=== PATIENT | male | born 1990 | race American Indian/Alaskan Native ===

== ENCOUNTER 2020-01-20 07:18 | Inpatient (IN) | payer OTHER ==
--- NOTE | 2020-01-20 08:27 | XRay Report ---
CHEST 2 VIEWS INDICATION / CLINICAL INFORMATION: Chest Pain. COMPARISON: None available. FINDINGS: SUPPORT DEVICES: None. HEART / MEDIASTINUM: No significant abnormality. LUNGS / PLEURA: No significant pulmonary or pleural abnormality. No pneumothorax. ADDITIONAL FINDINGS: No significant additional findings. IMPRESSION: 1. No acute findings. Signer Name: Ted Méndez MD Signed: 01/20/2020 8:22 AM Workstation Name: [id number]
--- NOTE | 2020-01-20 11:13 | Emergency Department Report ---
ED Chest Pain HPI - General Chief Complaint: Chest Pain Stated Complaint: CHEST PAIN Time Seen by Provider: 01/20/20 10:35 Source: patient Mode of arrival: Ambulatory Limitations: No Limitations - History of Present Illness Initial Comments: This is a 29-year-old -Latvian male presents to the emergency department with a complaint of chest pain, arm pain, shortness of breath that has been going on for the past few days but worsened this morning. 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 On top of that, the patient just recently started a new workout regiment but he describes as "training." This morning the symptoms were worse than usual so he came in for evaluation. He denies any fever, nausea, vomiting, lower extremity swelling, abdominal pain, back pain. He has not taken anything for symptoms prior to presentation. He denies any past medical history. Denies tobacco and illicit drug use. No recent travel or sick contacts at home. - Related Data Home Medications Medication Instructions Recorded Confirmed Last Taken No Known Home Medications [No 01/20/20 01/20/20 Unknown Reported Home Medications] Allergies Allergy/AdvReac Type Severity Reaction Status Date / Time No Known Allergies Allergy Unverified 01/20/20 07:22 Heart Score - HEART Score History: Slightly suspicious EKG: Normal Age: < 45 Risk factors: No known risk factors Troponin: < normal limit HEART Score: 0 - Critical Actions Critical Actions: 0-3 pts:0.9-1.7%risk of adverse cardiac event.Candidate for [facility] ED Review of Systems ROS: Stated complaint: CHEST PAIN Other details as noted in HPI Comment: All other systems reviewed and negative Constitutional: denies: chills, fever Eyes: denies: eye pain, vision change ENT: denies: ear pain, throat pain Respiratory: shortness of breath. denies: cough Cardiovascular: chest pain. denies: palpitations Gastrointestinal: denies: abdominal pain, vomiting Genitourinary: denies: dysuria, discharge Musculoskeletal: myalgia. denies: back pain Skin: denies: rash, lesions Neurological: denies: headache, weakness ED Past Medical Hx - Past Medical History Previous Medical History?: No - Surgical History Past Surgical History?: No - Social History Smoking Status: Never Smoker Substance Use Type: Alcohol - Medications Home Medications: Home Medications Medication Instructions Recorded Confirmed Last Taken Type No Known Home Medications [No 01/20/20 01/20/20 Unknown History Reported Home Medications] ED Physical Exam - General Limitations: No Limitations - Other Other exam information: GENERAL: The patient is well-developed well-nourished. HENT: Normocephalic. Atraumatic. Patient has moist mucous membranes. EYES: Extraocular motions are intact. NECK: Supple. Trachea is midline. CHEST/LUNGS: Clear to auscultation. There is no respiratory distress noted. There is reproducible tenderness to palpation along the anterior chest wall but no crepitus or deformity. HEART/CARDIOVASCULAR: Regular. There is no tachycardia. There is no murmur. ABDOMEN: Abdomen is soft, nontender. Patient has normal bowel sounds. SKIN: Skin is warm and dry. NEURO: The patient is awake, alert, and oriented. The patient is cooperative. The patient has no focal neurologic deficits. Normal speech. MUSCULOSKELETAL: There is no tenderness or deformity. There is no evidence of acute injury. ED Course Vital Signs 01/20/20 01/20/20 01/20/20 07:24 12:12 12:25 Temperature 98.6 F Pulse Rate 90 81 Pulse Rate [ 77 Anterior Bilateral] Pulse Rate [ 77 Posterior] Respiratory 20 Rate Respiratory 18 Rate [Anterior Bilateral] Respiratory 24 Rate [Posterior ] Blood Pressure 127/91 Blood Pressure 133/80 [Right] O2 Sat by Pulse 98 Oximetry AIDEE score - Aidee Score Age > 65: (0) No Aspirin use within the Past 7 Days: (0) No 3 or more CAD Risk Factors: (0) No 2 or more Angina events in past 24 hrs: (1) Yes Known CAD with more than 50% Stenosis: (0) No Elevated Cardiac Markers: (0) No ST Deviation Greater than 0.5mm: (0) No AIDEE Score: 1 ED Medical Decision Making - Lab Data Result diagrams: 01/20/20 11:14 01/20/20 11:14 - EKG Data -: EKG Interpreted by Me EKG shows normal: sinus rhythm, axis, intervals, QRS complexes, ST-T waves Rate: normal - EKG Data When compared to previous EKG there are: previous EKG unavailable Interpretation: normal EKG - Radiology Data Radiology results: image reviewed interpreted by me: Chest x-ray does not show any acute process. There are no pleural effusions, obvious pneumonia and there is no pneumothorax. - Medical Decision Making This patient presents to the emergency department with a complaint of some chest pain, bilateral arm/shoulder pain, and some shortness of breath. EKG does not have any morphology consistent with ST elevation SD. Chest x-ray does not show any pneumonia, pneumothorax, focal consolidation, pleural effusions, or any other acute process. Given the patient's complaint of exertion at work and starting a new "training" regiment, I had concern for rhabdomyolysis. There is no renal insufficiency but the patient has a CK level of greater than 66,000. An IV has been placed and he has been started on IV fluid resuscitation. He will be admitted to the hospital for further evaluation and treatment and was accepted for admission by the hospitalist service. Critical Care Time: No Critical care attestation.: If time is entered above; I have spent that time in minutes in the direct care of this critically ill patient, excluding procedure time. ED Disposition Clinical Impression: Rhabdomyolysis Qualifiers: Rhabdomyolysis type: traumatic Encounter type: initial encounter Qualified Code(s): T79.6XXA - Traumatic ischemia of muscle, initial encounter Chest pain Qualifiers: Chest pain type: unspecified Qualified Code(s): R07.9 - Chest pain, unspecified Dyspnea Qualifiers: Dyspnea type: shortness of breath Qualified Code(s): R06.02 - Shortness of breath; R06.00 - Dyspnea, unspecified; R06.01 - Orthopnea Disposition: OP ADMIT IP TO THIS HOSP Is pt being admited?: Yes Condition: Fair Instructions: Chest Pain (ED) Referrals: PRIMARY CARE, [Primary Care Provider] - 3-5 Days Time of Disposition: 12:54
[2020-01-20 11:28] LABS: Basophils # (Auto) 0.2 K/mm3 (0.0-0.1); Basophils % (Auto) 2.8 % (0.0-1.8); Eosinophils # (Auto) 0.1 K/mm3 (0.0-0.4); Eosinophils % (Auto) 1.1 % (0.0-4.3); Hematocrit 48.4 % (35.5-45.6); Hemoglobin 16.3 gm/dl (11.8-15.2); Lymphocytes # (Auto) 1.4 K/mm3 (1.2-5.4); Lymphocytes % (Auto) 23.5 % (13.4-35.0); Mean Corpuscular HGB Conc 34 % (32-34); Mean Corpuscular Volume 87 fl (84-94); Monocytes # (Auto) 0.4 K/mm3 (0.0-0.8); Platelet Count 233 K/mm3 (140-440); Red Cell Distribution Width 15.1 % (13.2-15.2)
[2020-01-20] MEDS ORDERED: IPRATROPIUM/ALBUTEROL SULFATE 3 ML AMPUL.NEB IH ONE (11:36)
[2020-01-20 11:41] LABS: BUN/Creatinine Ratio 14; Blood Urea Nitrogen 11 mg/dL (9-20); Calcium 9.9 mg/dL (8.4-10.2); Hemolysis Index 5
[2020-01-20] MEDS ORDERED: SODIUM CHLORIDE 0.9% 1000 ML 2,000 ML ONE (12:40)
[2020-01-20] MEDS ORDERED: SODIUM CHLORIDE 0.9% 1000 ML 1,000 ML IV ONE ×3 (12:50→14:44)
--- NOTE | 2020-01-20 14:45 | History and Physical Report ---
History of Present Illness Date of examination: 01/20/20 Date of admission: 01/20/20 12:55 Chief complaint: Generalized body pains, myalgia, chest pain History of present illness: 29-year-old -Japanese male presents with no significant past medical history, not on any medication presents to the emergency room with generalized body pains including chest pain arm pain and shortness of breath intermittent for the last 3 to 4 days worse since morning. 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 Patient also gives history of recent vigorous exercise program to condition himself. Patient denies any fever, no nausea vomiting, denies headache or dizziness, denies any sick contacts Denies orthopnea, paroxysmal nocturnal dyspnea or palpitations. Initial work-up in the emergency room is consistent with severe rhabdomyolysis with CK levels more than 60,000, preserved renal function Chest x-ray no acute abnormality noted Past History Past Medical History: No medical history. denies: diabetes, hypertension Past Surgical History: denies: No surgical history Social history: full code. denies: smoking, alcohol abuse, prescription drug abuse Family history: no significant family history Medications and Allergies Allergies Allergy/AdvReac Type Severity Reaction Status Date / Time No Known Allergies Allergy Unverified 01/20/20 07:22 Home Medications Medication Instructions Recorded Confirmed Last Taken Type No Known Home Medications [No 01/20/20 01/20/20 Unknown History Reported Home Medications] Review of Systems Constitutional: weakness, other (Generalized body pains), no weight loss, no weight gain, no fever, no chills Ears, nose, mouth and throat: no nasal congestion, no nasal discharge Cardiovascular: chest pain, no orthopnea, no palpitations, no shortness of breath Respiratory: no cough with sputum, no hemoptysis Gastrointestinal: no abdominal pain, no nausea, no vomiting Genitourinary Male: no dysuria, no hematuria Musculoskeletal: myalgias, other (Generalized body pains) Integumentary: no rash, no lesions Neurological: weakness, no seizures, no syncope Psychiatric: no anxiety, no depression Endocrine: no cold intolerance, no heat intolerance Hematologic/Lymphatic: no easy bruising, no easy bleeding Allergic/Immunologic: no urticaria, no allergic rhinitis Exam - Constitutional Vitals: Temp Pulse Resp BP Pulse Ox 98.6 F 77 18 133/80 98 01/20/20 07:24 01/20/20 12:25 01/20/20 12:25 01/20/20 12:12 01/20/20 12:12 General appearance: Present: mild distress, well-nourished - EENT Eyes: Present: PERRL, EOM intact - Neck Neck: Present: supple, normal ROM - Respiratory Respiratory effort: normal Respiratory: bilateral: diminished, negative: rales, rhonchi, wheezing - Cardiovascular Rhythm: regular Heart Sounds: Present: S1 & S2 - Extremities Extremities: no ischemia, No edema - Abdominal General gastrointestinal: Present: soft, non-tender, non-distended, normal bowel sounds - Integumentary Integumentary: Present: clear, warm - Musculoskeletal Musculoskeletal: strength equal bilaterally - Psychiatric Psychiatric: appropriate mood/affect, cooperative - Neurologic Neurologic: CNII-XII intact, moves all extremities HEART Score - HEART Score EKG: Normal Age: < 45 Risk factors: No known risk factors Troponin: Troponin T < 0.010 ng/mL (0.00-0.029) 01/20/20 11:14 Troponin: < normal limit - Critical Actions Critical Actions: 0-3 pts:0.9-1.7%risk of adverse cardiac event.Candidate for discharge Results - Labs CBC & Chem 7: 01/20/20 11:14 01/20/20 11:14 Labs: Abnormal lab results 01/20/20 01/20/20 Range/Units 11:14 11:14 RBC 5.60 H (3.65-5.03) M/mm3 Hgb 16.3 H (11.8-15.2) gm/dl Hct 48.4 H (35.5-45.6) % Baso % (Auto) 2.8 H (0.0-1.8) % Baso # 0.2 H (0.0-0.1) K/mm3 Glucose 104 H (75-100) mg/dL Total Creatine Kinase 82057 H (55-170) units/L Assessment and Plan --Rhabdomyolysis; with preserved renal function Probably secondary to heavy lifting weights at work and Excessive exercises, with myalgia CK levels more than 60,000 Rigorous IV hydration, input output monitoring Plenty of oral fluids, closely monitor renal function Consult nephrology if no improvement --Atypical chest pain, generalized body pains; Unlikely cardiac due to age, and history of rigorous physical activity Associated with rhabdomyolysis Closely monitor --DVT prophylaxis; Lovenox Monitor closely and adjust management as needed Plan of care reviewed with the patient and the nurse
[2020-01-20] MEDS ORDERED: oxyCODONE /ACETAMINOPHEN 5-325MG TAB ONE (17:19)
[2020-01-20] MEDS: oxyCODONE /ACETAMINOPHEN 5-325MG TAB PO PRN (17:25)
[2020-01-20] MEDS ORDERED: MORPHINE 2 MG/1 ML INJ IV PRN (19:18)
[2020-01-20 19:54] LABS: Amphetamine Screen,Urine Negative; Benzodiazepines Screen,Urine Negative; Cannabinoid Screen,Urine Negative; Cocaine Screen,Urine Negative; Methadone Screen,Urine Negative; Opiate Screen,Urine Negative
[2020-01-21] MEDS: SODIUM CHLORIDE 0.9% 1000 ML 1,000 ML IV SCH ×4 (01:12→19:28)
[2020-01-21] MEDS: oxyCODONE /ACETAMINOPHEN 5-325MG TAB PO PRN ×3 (02:07→17:17)
[2020-01-21 05:59] LABS: BUN/Creatinine Ratio 15; Blood Urea Nitrogen 12 mg/dL (9-20); Calcium 8.5 mg/dL (8.4-10.2); Hemolysis Index 18
[2020-01-21 06:00] LABS: Creatine Kinase MB 21.4 ng/mL (0.0-4.0)
[2020-01-21] MEDS ORDERED: PANTOPRAZOLE 40 MG INJ IV SCH (10:00)
[2020-01-21] MEDS ORDERED: FUROSEMIDE 40 MG/4 ML INJ IV SCH (10:00)
--- NOTE | 2020-01-21 10:44 | Progress Note ---
Assessment and Plan Assessment and plan: --Rhabdomyolysis; There is IV hydration, IV Lasix Input output monitoring Closely monitor CK levels Preserved renal function Nephrology if needed --Atypical chest pain; Associated with generalized body pains; due to rhabdomyolysis Unlikely cardiac due to age, and history of rigorous physical activity Continue vigorous IV hydration supportive care --DVT prophylaxis; Lovenox Monitor closely and adjust management as needed Plan of care reviewed with the patient and the nurse History Interval history: Seen and evaluated the patient in his room this morning medical records reviewed Patient's CK levels remain more than 60,000 Patient complains of generalized body pains No fever Vital signs reviewed Hospitalist Physical - Constitutional Vitals: Temp Pulse Resp BP Pulse Ox 97.9 F 63 18 124/68 100 01/21/20 05:08 01/21/20 05:08 01/21/20 05:08 01/21/20 05:08 01/21/20 05:08 General appearance: Present: mild distress, well-nourished - EENT Eyes: Present: PERRL, EOM intact - Neck Neck: Present: supple, normal ROM - Respiratory Respiratory effort: normal Respiratory: bilateral: diminished, negative: rales, rhonchi, wheezing - Cardiovascular Rhythm: regular Heart Sounds: Present: S1 & S2 - Extremities Extremities: no ischemia, No edema - Abdominal General gastrointestinal: soft, non-tender, non-distended, normal bowel sounds - Integumentary Integumentary: Present: clear, warm - Psychiatric Psychiatric: appropriate mood/affect, cooperative - Neurologic Neurologic: CNII-XII intact, moves all extremities HEART Score - HEART Score EKG: Normal Age: < 45 Risk factors: No known risk factors Troponin: Troponin T < 0.010 ng/mL (0.00-0.029) 01/20/20 11:14 Troponin: < normal limit - Critical Actions Critical Actions: 0-3 pts:0.9-1.7%risk of adverse cardiac event.Candidate for discharge Results - Labs CBC & Chem 7: 01/20/20 11:14 01/21/20 05:01 Labs: Laboratory Last Values WBC 6.1 K/mm3 (4.5-11.0) 01/20/20 11:14 RBC 5.60 M/mm3 (3.65-5.03) H 01/20/20 11:14 Hgb 16.3 gm/dl (11.8-15.2) H 01/20/20 11:14 Hct 48.4 % (35.5-45.6) H 01/20/20 11:14 MCV 87 fl (84-94) 01/20/20 11:14 MCH 29 pg (28-32) 01/20/20 11:14 MCHC 34 % (32-34) 01/20/20 11:14 RDW 15.1 % (13.2-15.2) 01/20/20 11:14 Plt Count 233 K/mm3 (140-440) 01/20/20 11:14 Lymph % (Auto) 23.5 % (13.4-35.0) 01/20/20 11:14 [place] % (Auto) 6.0 % (0.0-7.3) 01/20/20 11:14 Eos % (Auto) 1.1 % (0.0-4.3) 01/20/20 11:14 Baso % (Auto) 2.8 % (0.0-1.8) H 01/20/20 11:14 Lymph # 1.4 K/mm3 (1.2-5.4) 01/20/20 11:14 [place] # 0.4 K/mm3 (0.0-0.8) 01/20/20 11:14 Eos # 0.1 K/mm3 (0.0-0.4) 01/20/20 11:14 Baso # 0.2 K/mm3 (0.0-0.1) H 01/20/20 11:14 Seg Neutrophils % 66.6 % (40.0-70.0) 01/20/20 11:14 Seg Neutrophils # 4.0 K/mm3 (1.8-7.7) 01/20/20 11:14 Sodium 141 mmol/L (137-145) 01/21/20 05:01 Potassium 4.2 mmol/L (3.6-5.0) 01/21/20 05:01 Chloride 104.1 mmol/L (98-107) 01/21/20 05:01 Carbon Dioxide 26 mmol/L (22-30) 01/21/20 05:01 Anion Gap 15 mmol/L 01/21/20 05:01 BUN 12 mg/dL (9-20) 01/21/20 05:01 Creatinine 0.8 mg/dL (0.8-1.5) 01/21/20 05:01 Estimated GFR > 60 ml/min 01/21/20 05:01 BUN/Creatinine Ratio 15 % 01/21/20 05:01 Glucose 100 mg/dL (75-100) 01/21/20 05:01 Calcium 8.5 mg/dL (8.4-10.2) 01/21/20 05:01 Total Creatine Kinase 61750 units/L (55-170) H 01/21/20 08:24 CK-MB (CK-2) 21.4 ng/mL (0.0-4.0) H 01/21/20 05:01 CK-MB (CK-2) Rel Index 52.1 (0-4) H 01/21/20 05:01 Troponin T < 0.010 ng/mL (0.00-0.029) 01/20/20 11:14 Urine Opiates Screen Negative 01/20/20 19:37 Urine Methadone Screen Negative 01/20/20 19:37 Ur Barbiturates Screen Negative 01/20/20 19:37 Ur Phencyclidine Scrn Negative 01/20/20 19:37 Ur Amphetamines Screen Negative 01/20/20 19:37 U Benzodiazepines Scrn Negative 01/20/20 19:37 Urine Cocaine Screen Negative 01/20/20 19:37 U Marijuana (THC) Screen Negative 01/20/20 19:37 Drugs of Abuse Note Disclamer 01/20/20 19:37 Cooley/IV: IV Catheter Type [Left INT / Saline Lock Antecubital] Active Medications - Current Medications Current Medications: Generic Name Dose Route Start Last Admin Trade Name Freq PRN Reason Stop Dose Admin Furosemide 40 mg 01/21/20 10:00 01/21/20 09:31 Lasix IV 40 mg QDAY JEFFERY Administration Sodium Chloride 1,000 mls @ 150 mls/hr 01/20/20 15:00 01/21/20 06:43 Nacl 0.9% 1000 Ml IV 150 mls/hr DIRECT JEFFERY Administration Morphine Sulfate 2 mg 01/20/20 19:18 01/20/20 19:37 Morphine IV 2 mg Q8H PRN Administration Pain, Moderate (4-6) Oxycodone/Acetaminophen 1 tab 01/20/20 17:15 01/21/20 09:33 Percocet 5/325 PO 1 tab Q6H PRN Administration Pain, Moderate (4-6) Pantoprazole Sodium 40 mg 01/21/20 10:00 01/21/20 09:31 Protonix IV 40 mg QDAY JEFFERY Administration
[2020-01-21] MEDS: FUROSEMIDE 40 MG/4 ML INJ IV SCH ×2 (21:33→22:15)
[2020-01-22] MEDS: SODIUM CHLORIDE 0.9% 1000 ML 1,000 ML IV SCH ×6 (00:05→21:57)
[2020-01-22] MEDS: oxyCODONE /ACETAMINOPHEN 5-325MG TAB PO PRN ×2 (04:50→14:30)
[2020-01-22] MEDS: FUROSEMIDE 40 MG/4 ML INJ IV SCH ×2 (06:03→19:01)
[2020-01-22] MEDS: PANTOPRAZOLE 40 MG TAB PO SCH (09:34)
[2020-01-22 10:19] LABS: Creatine Kinase MB 11.7 ng/mL (0.0-4.0)
[2020-01-22 10:24] LABS: BUN/Creatinine Ratio 10; Blood Urea Nitrogen 7 mg/dL (9-20); Calcium 8.8 mg/dL (8.4-10.2); Hemolysis Index 24
--- NOTE | 2020-01-22 18:00 | Progress Note ---
Assessment and Plan Assessment and plan: --Rhabdomyolysis; due to rigorous physical activity [place] levels 54806 -[id number] There is IV hydration, IV Lasix Input output monitoring Preserved renal function --Generalized myalgias Supportive care, pain medication, IV hydration --DVT prophylaxis; Lovenox Monitor closely and adjust management as needed Plan of care reviewed with the patient and the nurse History Interval history: Patient seen and examined Tests and reports reviewed Very minimal decrease in CK levels CK levels remain more than 60,000 Complains of generalized body pains Vital signs noted Hospitalist Physical - Constitutional Vitals: Temp Pulse Resp BP Pulse Ox 98.8 F 60 19 120/58 100 01/22/20 12:24 01/22/20 12:24 01/22/20 12:24 01/22/20 12:24 01/22/20 12:24 General appearance: Present: mild distress, well-nourished - EENT Eyes: Present: PERRL, EOM intact - Neck Neck: Present: supple, normal ROM - Respiratory Respiratory effort: normal Respiratory: bilateral: diminished, negative: rales, rhonchi, wheezing - Cardiovascular Rhythm: regular Heart Sounds: Present: S1 & S2 - Extremities Extremities: no ischemia, No edema - Abdominal General gastrointestinal: soft, non-tender, non-distended, normal bowel sounds - Integumentary Integumentary: Present: clear, warm - Psychiatric Psychiatric: appropriate mood/affect, cooperative - Neurologic Neurologic: moves all extremities HEART Score - HEART Score EKG: Normal Age: < 45 Risk factors: No known risk factors Troponin: Troponin T < 0.010 ng/mL (0.00-0.029) 01/20/20 11:14 Troponin: < normal limit - Critical Actions Critical Actions: 0-3 pts:0.9-1.7%risk of adverse cardiac event.Candidate for discharge Results - Labs CBC & Chem 7: 01/20/20 11:14 01/22/20 09:14 Labs: Laboratory Last Values WBC 6.1 K/mm3 (4.5-11.0) 01/20/20 11:14 RBC 5.60 M/mm3 (3.65-5.03) H 01/20/20 11:14 Hgb 16.3 gm/dl (11.8-15.2) H 01/20/20 11:14 Hct 48.4 % (35.5-45.6) H 01/20/20 11:14 MCV 87 fl (84-94) 01/20/20 11:14 MCH 29 pg (28-32) 01/20/20 11:14 MCHC 34 % (32-34) 01/20/20 11:14 RDW 15.1 % (13.2-15.2) 01/20/20 11:14 Plt Count 233 K/mm3 (140-440) 01/20/20 11:14 Lymph % (Auto) 23.5 % (13.4-35.0) 01/20/20 11:14 [place] % (Auto) 6.0 % (0.0-7.3) 01/20/20 11:14 Eos % (Auto) 1.1 % (0.0-4.3) 01/20/20 11:14 Baso % (Auto) 2.8 % (0.0-1.8) H 01/20/20 11:14 Lymph # 1.4 K/mm3 (1.2-5.4) 01/20/20 11:14 [place] # 0.4 K/mm3 (0.0-0.8) 01/20/20 11:14 Eos # 0.1 K/mm3 (0.0-0.4) 01/20/20 11:14 Baso # 0.2 K/mm3 (0.0-0.1) H 01/20/20 11:14 Seg Neutrophils % 66.6 % (40.0-70.0) 01/20/20 11:14 Seg Neutrophils # 4.0 K/mm3 (1.8-7.7) 01/20/20 11:14 Sodium 139 mmol/L (137-145) 01/22/20 09:14 Potassium 4.2 mmol/L (3.6-5.0) 01/22/20 09:14 Chloride 104.8 mmol/L (98-107) 01/22/20 09:14 Carbon Dioxide 22 mmol/L (22-30) 01/22/20 09:14 Anion Gap 16 mmol/L 01/22/20 09:14 BUN 7 mg/dL (9-20) L 01/22/20 09:14 Creatinine 0.7 mg/dL (0.8-1.5) L 01/22/20 09:14 Estimated GFR > 60 ml/min 01/22/20 09:14 BUN/Creatinine Ratio 10 % 01/22/20 09:14 Glucose 106 mg/dL (75-100) H 01/22/20 09:14 Calcium 8.8 mg/dL (8.4-10.2) 01/22/20 09:14 Total Creatine Kinase 21674 units/L (55-170) H 01/22/20 09:14 CK-MB (CK-2) 11.7 ng/mL (0.0-4.0) H 01/22/20 09:14 CK-MB (CK-2) Rel Index 0.0 (0-4) 01/22/20 09:14 Troponin T < 0.010 ng/mL (0.00-0.029) 01/20/20 11:14 Urine Opiates Screen Negative 01/20/20 19:37 Urine Methadone Screen Negative 01/20/20 19:37 Ur Barbiturates Screen Negative 01/20/20 19:37 Ur Phencyclidine Scrn Negative 01/20/20 19:37 Ur Amphetamines Screen Negative 01/20/20 19:37 U Benzodiazepines Scrn Negative 01/20/20 19:37 Urine Cocaine Screen Negative 01/20/20 19:37 U Marijuana (THC) Screen Negative 01/20/20 19:37 Drugs of Abuse Note Disclamer 01/20/20 19:37 Cooley/IV: Voiding Method Toilet IV Catheter Type [Left INT / Saline Lock Antecubital] Active Medications - Current Medications Current Medications: Generic Name Dose Route Start Last Admin Trade Name Freq PRN Reason Stop Dose Admin Furosemide 40 mg 01/22/20 06:00 01/22/20 06:03 Lasix IV Not Given 0600,1800 JEFFERY Sodium Chloride 1,000 mls @ 200 mls/hr 01/20/20 15:00 01/22/20 16:56 Nacl 0.9% 1000 Ml IV 150 mls/hr DIRECT JEFFERY Administration Morphine Sulfate 2 mg 01/20/20 19:18 01/20/20 19:37 Morphine IV 2 mg Q8H PRN Administration Pain, Moderate (4-6) Oxycodone/Acetaminophen 1 tab 01/20/20 17:15 01/22/20 14:30 Percocet 5/325 PO 1 tab Q6H PRN Administration Pain, Moderate (4-6) Pantoprazole Sodium 40 mg 01/22/20 10:00 01/22/20 09:34 Protonix PO 40 mg DAILY JEFFERY Administration
[2020-01-23] MEDS: oxyCODONE /ACETAMINOPHEN 5-325MG TAB PO PRN (04:07)
[2020-01-23] MEDS: SODIUM CHLORIDE 0.9% 1000 ML 1,000 ML IV SCH ×3 (04:07→14:33)
[2020-01-23] MEDS: FUROSEMIDE 40 MG/4 ML INJ IV SCH (05:31)
[2020-01-23 05:55] LABS: Creatine Kinase MB 5.6 ng/mL (0.0-4.0)
[2020-01-23] MEDS: PANTOPRAZOLE 40 MG TAB PO SCH (09:04)
--- NOTE | 2020-01-23 16:05 | Discharge Summary ---
Providers - Providers Date of Admission: 01/21/20 10:49 Date of discharge: 01/23/20 Attending physician: EUGENE RODGERS Primary care physician: [employer] Hospitalization Condition: Stable Disposition: DC-01 TO HOME OR SELFCARE Time spent for discharge: 32 min Core Measure Documentation - Palliative Care Palliative Care/ Comfort Measures: Not Applicable - Core Measures Any of the following diagnoses?: none Exam - Constitutional Vitals: Temp Pulse Resp BP Pulse Ox 98.1 F 58 L 18 104/54 100 01/23/20 04:45 01/23/20 04:45 01/23/20 04:45 01/23/20 04:45 01/23/20 04:45 General appearance: Present: no acute distress, well-nourished - EENT Eyes: Present: PERRL, EOM intact - Neck Neck: Present: supple, normal ROM - Respiratory Respiratory effort: normal Respiratory: bilateral: diminished, negative: rales, rhonchi, wheezing - Cardiovascular Rhythm: regular Heart Sounds: Present: S1 & S2 - Extremities Extremities: no ischemia, No edema - Abdominal General gastrointestinal: Present: soft, non-tender, normal bowel sounds - Integumentary Integumentary: Present: clear, warm - Musculoskeletal Musculoskeletal: strength equal bilaterally - Psychiatric Psychiatric: appropriate mood/affect, cooperative - Neurologic Neurologic: moves all extremities Plan Activity: other (No strenuous exercises) Diet: regular Additional Instructions: Advised to take plenty of oral fluids. Check CK[creatinine kinase] levels at PMDs office or urgent care in 1 week. Advised 4 days work excuse from 01/24/20 till 01/27/2020. Check with your primary care physician for additional days of work excuse if needed Follow up with: PRIMARY CARE, [Primary Care Provider] - 3-5 Days Prescriptions: Furosemide [Lasix] 20 mg PO QDAY #7 tablet
[2020-01-23 17:19] VITALS: BP 109/83
== END 2020-01-23 17:35 | disposition home or self-care (01) | DRG 566 ==
LOC: ED 07:18 → 3A 12:55 → OBSVTOIN 01-21 10:49
PROVIDERS: ADMIT Internal Medicine; ATTEND Internal Medicine
DX: T79.6XXA Traumatic ischemia of muscle, initial encounter (principal); X58.XXXA Exposure to other specified factors, initial encounter; Y93.89 Activity, other specified; Y92.89 Other specified places as the place of occurrence of the external cause; Y99.8 Other external cause status
CPT/HCPCS: 36415; 71046; 80048; 80307; 82550; 82553; 84484; 85025; 93005; 94640; 94644; G0378; C9113; J1940; J2270; J7030

== ENCOUNTER 2020-12-29 18:11 | Emergency (ER) | payer SELFPAY ==
[2020-12-29 20:08] VITALS: BP 133/87
--- NOTE | 2020-12-29 20:15 | Event Note ---
ED Screening Note Date of service: 12/29/20 Time: 20:11 ED Screening Note: Patient complains of sudden onset of right sided/lower abdominal pain today States pain is colicky Denies stool changes No fever/chills/sweats per patient Patient admits to urinary frequency without hematuria Right side/right lower quadrant tenderness to palpation noted on exam without rebound This initial assessment/diagnostic orders/clinical plan/treatment(s) is/are subject to change based on patients health status, clinical progression and re- assessment by fellow clinical providers in the ED. Further treatment and workup at subsequent clinical providers discretion. Patient/guardian urged not to elope from the ED as their condition may be serious if not clinically assessed and managed. Initial orders include: Labs
[2020-12-29 20:51] LABS: Basophils % (Auto) 0.2 % (0.0-1.8); Eosinophils % (Auto) 0.1 % (0.0-4.3); Hematocrit 45.5 % (35.5-45.6); Hemoglobin 15.5 gm/dl (11.8-15.2); Lymphocytes # (Auto) 1.6 K/mm3 (1.2-5.4); Lymphocytes % (Auto) 13.2 % (13.4-35.0); Mean Corpuscular HGB Conc 34 % (32-34); Mean Corpuscular Volume 86 fl (84-94); Monocytes # (Auto) 0.7 K/mm3 (0.0-0.8); Monocytes % (Auto) 5.7 % (0.0-7.3); Platelet Count 246 K/mm3 (140-440); Red Blood Count 5.28 M/mm3 (3.65-5.03); Red Cell Distribution Width 14.6 % (13.2-15.2)
[2020-12-29 21:01] LABS: Alanine Aminotransferase 29 units/L (7-56); BUN/Creatinine Ratio 12; Blood Urea Nitrogen 12 mg/dL (9-20); Calcium 10.1 mg/dL (8.4-10.2); Hemolysis Index 12
[2020-12-29 22:30] LABS: Bacteria,Urine 1+ /HPF (Negative); Bilirubin,Urine NEG (Negative); Blood,Urine LG (Negative); Color,Urine Yellow (Yellow); Mucus,Urine 1+ /HPF
[2020-12-29 22:33] LABS: RBC,Urine > 182.0 /HPF (0.0-6.0)
--- NOTE | 2020-12-30 00:30 | Cat Scan Report ---
CT ABDOMEN AND PELVIS WITH IV CONTRAST INDICATION: Lower abdominal pain TECHNIQUE: Following the administration of intravenous contrast, multiple axial CT images of the abdo men and pelvis were acquired. Sagittal and coronal reformats were obtained. All CT performed at this facility utilize dose reduction techniques including automated exposure control, iterative reconstru ction and weight based dosing when appropriate to reduce patient radiation dose to as low as reasonab ly achievable. COMPARISON: None FINDINGS: Limited imaging of the bilateral lung bases demonstrates no acute abnormality. ABDOMEN: The liver, gallbladder, spleen, pancreas, bilateral adrenal glands and left kidney show no evidence o f acute abnormality. There is mild right-sided hydronephrosis and hydroureter with an obstructing 3 m m stone in the proximal right ureter. The abdominal aorta is normal in caliber. There is no evidence of bowel obstruction. The appendix is visualized and appears normal. PELVIS: There is scattered sigmoid diverticulosis without evidence for diverticulitis. The urinary bladder ap pears normal. No free pelvic fluid is identified BONES AND SOFT TISSUES: No significant abnormality. IMPRESSION: 1. Obstructing 3 mm stone within the proximal right ureter causing mild right-sided hydronephrosis an d hydroureter. Signer Name: Laquita Cain MD Signed: 12/30/2020 12:25 AM Workstation Name: [id number]
--- NOTE | 2020-12-30 01:30 | Emergency Department Report ---
ED General Adult HPI - General Chief complaint: Abdominal Pain Stated complaint: STOMACH PAIN Time Seen by Provider: 12/29/20 20:09 Source: patient Mode of arrival: Ambulatory Limitations: No Limitations - History of Present Illness Initial comments: The rest 30-year-old -Iranian male with past medical history just tonsillectomy presents emerged department complaining of sudden onset of right lower quadrant abdominal pain this morning that radiates to the flank but has since resolved in the flank region. Pain is continued to the right lower quadrant area and a dull achy nature is worse with palpation. Reports no diarrhea constipation no hemoptysis, hematemesis hematochezia, no fever, chills, sweats no chest pain palpitation. No nausea no vomiting. Radiation: non-radiation Quality: sharp Consistency: constant Worsens with: none Associated Symptoms: denies other symptoms. denies: chest pain, cough, diaphore sis, loss of appetite, malaise, nausea/vomiting, syncope, weakness Treatments Prior to Arrival: none - Related Data Previous Rx's Medication Instructions Recorded Last Taken Type Furosemide [Lasix] 20 mg PO QDAY #7 tablet 01/23/20 Unknown Rx Acetaminophen/Codeine [Tylenol #3] 1 tab PO Q6H PRN #15 tab 12/30/20 Unknown Rx Sulfamethoxazole/Trimethoprim 1 each PO BID #20 tablet 12/30/20 Unknown Rx [Bactrim Ds] Tamsulosin [Flomax] 0.4 mg PO QDAY #10 cap 12/30/20 Unknown Rx Allergies Allergy/AdvReac Type Severity Reaction Status Date / Time No Known Allergies Allergy Unverified 01/20/20 07:22 ED Review of Systems ROS: Stated complaint: STOMACH PAIN Other details as noted in HPI Comment: All other systems reviewed and negative ED Past Medical Hx - Surgical History Past Surgical History?: Yes Additional Surgical History: tonsillectomy - Social History Smoking Status: Never Smoker - Medications Home Medications: Home Medications Medication Instructions Recorded Confirmed Last Taken Type Furosemide [Lasix] 20 mg PO QDAY #7 tablet 01/23/20 Unknown Rx Acetaminophen/Codeine [Tylenol #3] 1 tab PO Q6H PRN #15 tab 12/30/20 Unknown Rx Sulfamethoxazole/Trimethoprim 1 each PO BID #20 tablet 12/30/20 Unknown Rx [Bactrim Ds] Tamsulosin [Flomax] 0.4 mg PO QDAY #10 cap 12/30/20 Unknown Rx ED Physical Exam - General Limitations: No Limitations General appearance: alert, in no apparent distress - Head Head exam: Present: atraumatic, normocephalic - Eye Eye exam: Present: normal appearance, PERRL, EOMI Pupils: Present: normal accommodation - ENT ENT exam: Present: normal exam, mucous membranes moist, TM's normal bilaterally - Neck Neck exam: Present: normal inspection, full ROM - Respiratory Respiratory exam: Present: normal lung sounds bilaterally. Absent: respiratory distress - Cardiovascular Cardiovascular Exam: Present: regular rate, normal rhythm. Absent: systolic murmur, diastolic murmur, rubs, gallop - GI/Abdominal GI/Abdominal exam: Present: soft, tenderness (Patient has a right lower quadrant with palpation. No rebound. No Rovsing, no Ahuja Hernandez, no no Jimenez sign), normal bowel sounds - Rectal Rectal exam: Present: deferred - Extremities Exam Extremities exam: Present: normal inspection - Back Exam Back exam: Present: normal inspection, CVA tenderness (R), CVA tenderness (L) - Neurological Exam Neurological exam: Present: alert, oriented X3, CN II-XII intact, normal gait - Psychiatric Psychiatric exam: Present: normal affect, normal mood - Skin Skin exam: Present: warm, dry, intact, normal color. Absent: rash ED Course Vital Signs 12/29/20 20:06 Temperature 98.5 F Pulse Rate 108 H Respiratory 16 Rate Blood Pressure 133/87 O2 Sat by Pulse 98 Oximetry ED Medical Decision Making - Lab Data Result diagrams: 12/29/20 20:27 12/29/20 20:27 - Radiology Data Radiology results: report reviewed [address] [place] [address] Cat Scan Report Signed Patient: ESTELITA LAWSON MR#: [id number] : 1990 Acct:[id number] Age/Sex: 30 / M ADM Date: 12/29/20 Loc: ED Attending Dr: Ordering Physician: CRYSTAL CANADA Date of Service: 12/29/20 Procedure(s): CT abdomen pelvis w con Accession Number(s): [id number] cc: CRYSTAL CANADA CT ABDOMEN AND PELVIS WITH IV CONTRAST INDICATION: Lower abdominal pain TECHNIQUE: Following the administration of intravenous contrast, multiple axial CT images of the abdomen and pelvis were acquired. Sagittal and coronal reformats were obtained. All CT performed at this facility utilize dose reduction techniques including automated exposure control, iterative reconstruction and weight based dosing when appropriate to reduce patient radiation dose to as low as reasonably achievable. COMPARISON: None FINDINGS: Limited imaging of the bilateral lung bases demonstrates no acute abnormality. ABDOMEN: The liver, gallbladder, spleen, pancreas, bilateral adrenal glands and left kidney show no evidence of acute abnormality. There is mild right-sided hydronephrosis and hydroureter with an obstructing 3 mm stone in the proximal right ureter. The abdominal aorta is normal in caliber. There is no evidence of bowel obstruction. The appendix is visualized and appears normal. PELVIS: There is scattered sigmoid diverticulosis without evidence for diverticulitis. The urinary bladder appears normal. No free pelvic fluid is identified BONES AND SOFT TISSUES: No significant abnormality. IMPRESSION: 1. Obstructing 3 mm stone within the proximal right ureter causing mild right- sided hydronephrosis and hydroureter. Signer Name: Laquita Cain MD Signed: 12/30/2020 12:25 AM Workstation Name: [id number] Transcribed By: EB Dictated By: Laquita Cain MD Electronically Authenticated By: Laquita Cain MD Signed Date/Time: 12/30/2024 DD/ TD/TT: Print Cancel - Medical Decision Making 30-year-old -Iranian male presents emergency department with abdominal/flank pain which appears to be secondary to a kidney stone. CT scan was performed to evaluate for potential causes abdominal pain however the clinical examination of the CT scan identified an emergent cause for the pain. The CT scan did show a 3 mm stone in the presentation was also consistent with renal colic from a noninfected kidney stone. Given the history I have low suspicion for atypical appendicitis, do not suspect torsion, acute cholecysti tis, AAA, aortic dissection, serious bacterial illness or other emergent pathology.I have discussed with the patient the level of uncertainty with undifferentiated abdominal pain and clearly explained the need to follow-up as noted on the discharge instructions, or return to the Emergency Department immediately if the pain worsens, develops fever, persistent and uncontrollable vomiting, or for any new symptoms or concerns. Critical care attestation.: If time is entered above; I have spent that time in minutes in the direct care of this critically ill patient, excluding procedure time. ED Disposition Clinical Impression: Renal and ureteric calculus Disposition: DC-01 TO HOME OR SELFCARE Is pt being admited?: No Does the pt Need Aspirin: No Condition: Stable Instructions: Kidney Stones, Renal Colic, Lithotripsy, Care After Referrals: DEB RODRIGUEZ MD [Primary Care Provider] - 3-5 Days [facility] [Provider Group] - 3-5 Days
== END 2020-12-30 01:45 | disposition home or self-care (01) ==
LOC: ED 18:11
DX: N20.2 Calculus of kidney with calculus of ureter (principal); Z90.89 Acquired absence of other organs; Z98.890 Other specified postprocedural states; Z79.899 Other long term (current) drug therapy
CPT/HCPCS: 36415; 74177; 80053; 81001; 83690; 85025; 99284; Q9967